=== PATIENT | female | born 1945 | race Caucasian/White ===

== ENCOUNTER 2023-11-11 07:12 | Day surgery (SDC) | payer OTHER, MEDICARE ==
[2023-11-09 11:13] VITALS: BMI 29.5
[2023-11-11] MEDS ORDERED: TETRACAINE 0.5% OPHTH SOLN 2 ML BOTTLE ONE (07:21)
[2023-11-11] MEDS ORDERED: EPINEPHrine/PF 1 MG/1 ML (1:1,000) AMPULE ONE (07:21)
[2023-11-11] MEDS ORDERED: BSS (NA/CA/MG/K) BALANCED SALT SOLUTION OPHTH SOLN 15 ML BOTTLE ONE (07:21)
[2023-11-11] MEDS ORDERED: LIDOCAINE 1% P/F 10 MG/ML VIAL ONE (07:21)
[2023-11-11] MEDS ORDERED: CARBACHOL 0.01% INTRA-OCULAR 1.5 ML VIAL ONE (07:22)
[2023-11-11] MEDS ORDERED: NEO/POLYMYX B SULF/DEXAMETH OPHTHALMIC 5ML BOTTLE ONE (07:22)
[2023-11-11] MEDS: PHENYLEPHRINE 2.5% OPTHALMIC DROP 2ML BOTTLE ONE (07:25)
[2023-11-11] MEDS: TROPICAMIDE 1% OPHTH SOLN 15 ML BOTTLE ONE (07:25)
[2023-11-11] MEDS: CYCLOPENTOLATE 2% OPHTH SOLN 2 ML BOTTLE ONE (07:25)
[2023-11-11] MEDS: CIPROFLOXACIN 0.3% EYE DROPS 5 ML BOTTLE ONE (07:25)
[2023-11-11] MEDS ORDERED: MIDAZOLAM HCL 2 MG/2 ML SINGLE DOSE VIAL ONE (07:37)
[2023-11-11 09:43] VITALS: RESP 18; TEMP 98
[2023-11-11 09:50] VITALS: BP 144/64; PULSE 69
== END 2023-11-11 09:55 | disposition home or self-care (01) ==
LOC: FASU 07:12
PROVIDERS: ATTEND Ophthalmology
PROC: 08RJ3JZ Replacement of Right Lens with Synthetic Substitute, Percutaneous Approach (ICD-10-PCS; principal; 2023-11-11 08:57)
DX: H26.8 Other specified cataract (principal)
CPT/HCPCS: 66984; V2632

== ENCOUNTER 2023-11-25 09:02 | Day surgery (SDC) | payer OTHER, MEDICARE ==
[2023-11-18 13:24] VITALS: BMI 29.5
[2023-11-25] MEDS ORDERED: MIDAZOLAM HCL 2 MG/2 ML SINGLE DOSE VIAL ONE (09:21)
[2023-11-25] MEDS: CIPROFLOXACIN 0.3% EYE DROPS 5 ML BOTTLE ONE (09:35)
[2023-11-25] MEDS: CYCLOPENTOLATE 2% OPHTH SOLN 2 ML BOTTLE ONE (09:35)
[2023-11-25] MEDS: PHENYLEPHRINE 2.5% OPTHALMIC DROP 2ML BOTTLE ONE (09:35)
[2023-11-25] MEDS: TROPICAMIDE 1% OPHTH SOLN 15 ML BOTTLE ONE (09:35)
[2023-11-25 09:42] VITALS: RESP 16
[2023-11-25] MEDS ORDERED: BSS (NA/CA/MG/K) BALANCED SALT SOLUTION OPHTH SOLN 15 ML BOTTLE ONE (09:54)
[2023-11-25] MEDS ORDERED: LIDOCAINE 1% P/F 10 MG/ML VIAL ONE (09:54)
[2023-11-25] MEDS ORDERED: TETRACAINE 0.5% OPHTH SOLN 2 ML BOTTLE ONE (09:54)
[2023-11-25] MEDS ORDERED: EPINEPHrine/PF 1 MG/1 ML (1:1,000) AMPULE ONE (09:54)
[2023-11-25] MEDS ORDERED: CARBACHOL 0.01% INTRA-OCULAR 1.5 ML VIAL ONE (09:55)
[2023-11-25] MEDS ORDERED: NEO/POLYMYX B SULF/DEXAMETH OPHTHALMIC 5ML BOTTLE ONE (09:55)
[2023-11-25 11:32] VITALS: TEMP 96.9
[2023-11-25 11:45] VITALS: BP 134/71; PULSE 65
== END 2023-11-25 11:51 | disposition home or self-care (01) ==
LOC: FASU 09:02
PROVIDERS: ATTEND Ophthalmology
PROC: 08RK3JZ Replacement of Left Lens with Synthetic Substitute, Percutaneous Approach (ICD-10-PCS; principal; 2023-11-25 10:59)
DX: H26.8 Other specified cataract (principal)
CPT/HCPCS: 66984; V2632